=== PATIENT | female | born 1945 | race Caucasian/White ===

== ENCOUNTER 2021-02-09 17:55 | Inpatient (IN) ==
[2021-02-09] MEDS ORDERED: *HR* HYDROcodone/Acet 5/325 mg TABLET PO PRN (21:01)
[2021-02-09] MEDS ORDERED: Saline Nasal Spray 44 ML BOTTLE NS PRN (21:01)
[2021-02-09] MEDS ORDERED: *HR* Dextrose 50 % in Water (Vial) 50 ML VIAL IVP PRN (21:15)
[2021-02-09] MEDS ORDERED: Dextrose Gel 15 GM/37.5 ML TUBE PO PRN ×2 (21:15)
[2021-02-09] MEDS ORDERED: D5% in Water 1,000 ML IVC PRN (21:15)
[2021-02-09] MEDS: Melatonin 3 MG TABLET PO PRN (22:47)
[2021-02-10] MEDS ORDERED: Ondansetron ODT 4 MG TAB.RAPDIS SL PRN ×2 (01:35→17:14)
[2021-02-10] MEDS ORDERED: Morphine Sulfate ER (12 HR) 30 MG TABLET.ER PO SCH (09:00)
[2021-02-10] MEDS ORDERED: Sennosides/Docusate Sodium TABLET PO SCH (09:00)
[2021-02-10] MEDS ORDERED: METFORMIN HCL 500 MG PO SCH (09:00)
[2021-02-10] MEDS: Losartan/HCTZ 50-12.5 TABLET PO SCH (09:57)
[2021-02-10] MEDS: Cholecalciferol (D-3) 1,000 UNIT (25MCG) TABLET PO SCH (09:57)
[2021-02-10] MEDS: Multivit/Ca/Min/Fe/FA 1 TAB TABLET PO SCH (09:57)
[2021-02-10] MEDS: Gabapentin 400 MG CAPSULE PO SCH ×3 (09:57→20:38)
[2021-02-10] MEDS: Insulin LISPRO 300 UNITS/3 ML VIAL SUBQ SCH ×3 (09:58→17:16)
[2021-02-10] MEDS: Apixaban 5 MG TABLET PO SCH ×2 (09:58→20:38)
[2021-02-10] MEDS: Magnesium Oxide 400 MG TABLET PO SCH ×2 (09:58→20:38)
[2021-02-10] MEDS: Propranolol LA (24 HR) 80 MG CAP.SA.24H PO SCH (09:59)
[2021-02-10] MEDS: polyethylene glycoL 3350 17 GM POWD.PACK PO SCH (10:00)
[2021-02-10] MEDS: FEBUXOSTAT 40 MG PO SCH (10:00)
[2021-02-10] MEDS: Artificial Tears SOLN 15 ML BOTTLE BOTH EYES SCH ×2 (10:04→20:39)
[2021-02-10] MEDS ORDERED: Perflutren Lipid Microsphere 1.3 ML in 0.9 % Sodium Chloride 8.7 ML IVP PRN (10:30)
[2021-02-10] MEDS: Furosemide 40 MG TABLET PO SCH ×2 (11:12→17:16)
[2021-02-10] MEDS: dexAMETHasone 4 MG TABLET PO SCH (11:12)
[2021-02-10] MEDS ORDERED: Ondansetron 4 MG/2 ML VIAL IVP PRN (17:08)
[2021-02-10] MEDS ORDERED: Insulin LISPRO 300 UNITS/3 ML VIAL SUBQ SCH (21:00)
[2021-02-10] MEDS ORDERED: Insulin DETEMIR 100 UNIT/ML per UNIT SUBQ SCH (21:00)
[2021-02-10] MEDS: traZODone 50 MG TABLET PO SCH (21:43)
[2021-02-10] MEDS: Melatonin 3 MG TABLET PO PRN (21:43)
[2021-02-11 07:22] LABS: Magnesium 1.5 mg/dL (1.6-2.6); Phosphorous 4.2 mg/dL (2.7-4.5)
[2021-02-11] MEDS: Insulin LISPRO 300 UNITS/3 ML VIAL SUBQ SCH ×5 (10:30→20:28)
[2021-02-11] MEDS: dexAMETHasone 4 MG TABLET PO SCH (10:31)
[2021-02-11] MEDS: Artificial Tears SOLN 15 ML BOTTLE BOTH EYES SCH ×2 (10:31→20:27)
[2021-02-11] MEDS: Furosemide 40 MG TABLET PO SCH ×2 (10:31→15:57)
[2021-02-11] MEDS: Apixaban 5 MG TABLET PO SCH ×2 (10:32→20:28)
[2021-02-11] MEDS: Propranolol LA (24 HR) 80 MG CAP.SA.24H PO SCH (10:32)
[2021-02-11] MEDS: Losartan/HCTZ 50-12.5 TABLET PO SCH (10:32)
[2021-02-11] MEDS: Magnesium Oxide 400 MG TABLET PO SCH ×2 (10:33→20:28)
[2021-02-11] MEDS: polyethylene glycoL 3350 17 GM POWD.PACK PO SCH (10:33)
[2021-02-11] MEDS: Gabapentin 400 MG CAPSULE PO SCH ×3 (10:33→20:28)
[2021-02-11] MEDS: FEBUXOSTAT 40 MG PO SCH (10:34)
[2021-02-11] MEDS: Sennosides/Docusate Sodium TABLET PO SCH (10:34)
[2021-02-11] MEDS: Cholecalciferol (D-3) 1,000 UNIT (25MCG) TABLET PO SCH (10:35)
[2021-02-11] MEDS: Multivit/Ca/Min/Fe/FA 1 TAB TABLET PO SCH (10:35)
[2021-02-11] MEDS: Insulin DETEMIR 100 UNIT/ML per UNIT SUBQ SCH (20:28)
[2021-02-11] MEDS ORDERED: Ergocalciferol (VIT D2) 50,000 UNIT (1.25MG) CAP PO SCH (21:01)
[2021-02-11] MEDS: Melatonin 3 MG TABLET PO PRN (21:41)
[2021-02-11] MEDS: traZODone 50 MG TABLET PO SCH (21:41)
[2021-02-12 05:46] LABS: Albumin 2.9 g/dL (3.5-5.7); Albumin/Globulin Ratio 1.2 (1.1-2.2); Bilirubin,Total 0.4 mg/dL (0.3-1.0); Calcium 9.1 mg/dL (8.6-10.3); Globulin 2.5 g/dL (2.4-3.5); Potassium 3.2 mEq/L (3.5-5.1); Total Protein 5.4 g/dL (6.4-8.9)
[2021-02-12] MEDS: Insulin LISPRO 300 UNITS/3 ML VIAL SUBQ SCH ×5 (07:42→21:36)
[2021-02-12] MEDS: dexAMETHasone 4 MG TABLET PO SCH (08:28)
[2021-02-12] MEDS: Cholecalciferol (D-3) 1,000 UNIT (25MCG) TABLET PO SCH (08:29)
[2021-02-12] MEDS: FEBUXOSTAT 40 MG PO SCH (08:29)
[2021-02-12] MEDS: polyethylene glycoL 3350 17 GM POWD.PACK PO SCH ×2 (08:29→11:55)
[2021-02-12] MEDS: Sennosides/Docusate Sodium TABLET PO SCH (08:29)
[2021-02-12] MEDS: Gabapentin 400 MG CAPSULE PO SCH ×3 (08:29→21:34)
[2021-02-12] MEDS: Multivit/Ca/Min/Fe/FA 1 TAB TABLET PO SCH (08:30)
[2021-02-12] MEDS: Apixaban 5 MG TABLET PO SCH ×2 (08:30→21:35)
[2021-02-12] MEDS: Magnesium Oxide 400 MG TABLET PO SCH ×2 (08:30→21:35)
[2021-02-12] MEDS: Losartan/HCTZ 50-12.5 TABLET PO SCH (08:41)
[2021-02-12] MEDS: Furosemide 40 MG TABLET PO SCH ×2 (08:41→16:51)
[2021-02-12] MEDS: Propranolol LA (24 HR) 80 MG CAP.SA.24H PO SCH (08:42)
[2021-02-12] MEDS: Artificial Tears SOLN 15 ML BOTTLE BOTH EYES SCH ×2 (08:43→21:37)
[2021-02-12] MEDS: Insulin DETEMIR 100 UNIT/ML per UNIT SUBQ SCH (21:35)
[2021-02-12] MEDS: traZODone 50 MG TABLET PO SCH (21:35)
[2021-02-13 07:05] LABS: Alanine Aminotransferase 15 Units/L (7-52); Albumin 2.9 g/dL (3.5-5.7); Albumin/Globulin Ratio 1.1 (1.1-2.2); Alkaline Phosphatase 58 Units/L (34-104); Aspartate Amino Transferase 12 Units/L (13-39); BUN/Creatinine Ratio 55 (6-26); Bilirubin,Total 0.4 mg/dL (0.3-1.0); Blood Urea Nitrogen 57 mg/dL (8-23); Calcium 9.2 mg/dL (8.6-10.3); Carbon Dioxide 37 mEq/L (23-29); Chloride 96 mEq/L (98-107); Globulin 2.6 g/dL (2.4-3.5); Glucose 89 mg/dL (70-105); Osmolality,Calculated 303 (280-300); Potassium 3.8 mEq/L (3.5-5.1); Sodium 139 mEq/L (136-145); Total Protein 5.5 g/dL (6.4-8.9); eGFR For African Americans > 60 (> 60); eGFR For Non-African Americans 52 (> 60)
[2021-02-13] MEDS ORDERED: Propranolol LA (24 HR) 60 MG CAP.SA.24H PO SCH (09:00)
[2021-02-13] MEDS: Insulin LISPRO 300 UNITS/3 ML VIAL SUBQ SCH ×5 (09:58→17:10)
[2021-02-13] MEDS: Multivit/Ca/Min/Fe/FA 1 TAB TABLET PO SCH (09:59)
[2021-02-13] MEDS: Sennosides/Docusate Sodium TABLET PO SCH (09:59)
[2021-02-13] MEDS: Gabapentin 400 MG CAPSULE PO SCH ×3 (10:00→21:12)
[2021-02-13] MEDS: Cholecalciferol (D-3) 1,000 UNIT (25MCG) TABLET PO SCH (10:00)
[2021-02-13] MEDS: Magnesium Oxide 400 MG TABLET PO SCH ×2 (10:00→21:12)
[2021-02-13] MEDS: Propranolol LA (24 HR) 60 MG CAP.SA.24H PO SCH (10:00)
[2021-02-13] MEDS: Furosemide 40 MG TABLET PO SCH ×2 (10:00→17:08)
[2021-02-13] MEDS: polyethylene glycoL 3350 17 GM POWD.PACK PO SCH (10:00)
[2021-02-13] MEDS: dexAMETHasone 4 MG TABLET PO SCH (10:01)
[2021-02-13] MEDS: Artificial Tears SOLN 15 ML BOTTLE BOTH EYES SCH ×2 (10:01→21:12)
[2021-02-13] MEDS: FEBUXOSTAT 40 MG PO SCH (10:10)
[2021-02-13] MEDS: Apixaban 5 MG TABLET PO SCH ×2 (10:10→21:12)
[2021-02-13] MEDS: traZODone 50 MG TABLET PO SCH (21:12)
[2021-02-13] MEDS: Insulin DETEMIR 100 UNIT/ML X5UNITS SUBQ SCH (21:13)
[2021-02-14 07:43] LABS: Basophils % 0.1 %; Eosinophils % 0.3 %; Hematocrit 30.7 % (35.3-44.9); Immature Granulocytes % 0.4 % (0-4); Lymphocytes # 1.3 K/mcL (0.6-4.6); Mean Corpuscular HGB Conc 32.6 g/dL (31.6-35.5); Mean Corpuscular Hemoglobin 30.1 pg (28.0-33.3); Mean Corpuscular Volume 92.5 fL (83.0-100.0); Mean Platelet Volume 9.2 fL (9.4-12.4); Monocytes # 0.6 K/mcL (0.0-1.3); Monocytes % 8.2 %; Neutrophils # 5.9 K/mcL (1.6-8.9); Platelet Count 328 K/mcL (140-400); Red Blood Count 3.32 M/mcL (3.82-4.97); Red Cell Distribution Width 18.1 % (11.5-14.5); White Blood Count 7.8 K/mcL (4.3-11.1)
[2021-02-14 08:04] LABS: Alanine Aminotransferase 17 Units/L (7-52); Albumin 2.7 g/dL (3.5-5.7); Albumin/Globulin Ratio 1.1 (1.1-2.2); Alkaline Phosphatase 53 Units/L (34-104); Aspartate Amino Transferase 14 Units/L (13-39); BUN/Creatinine Ratio 58 (6-26); Bilirubin,Total 0.4 mg/dL (0.3-1.0); Blood Urea Nitrogen 49 mg/dL (8-23); Calcium 8.9 mg/dL (8.6-10.3); Carbon Dioxide 34 mEq/L (23-29); Chloride 99 mEq/L (98-107); Globulin 2.5 g/dL (2.4-3.5); Glucose 65 mg/dL (70-105); Osmolality,Calculated 299 (280-300); Potassium 3.5 mEq/L (3.5-5.1); Sodium 139 mEq/L (136-145); Total Protein 5.2 g/dL (6.4-8.9); eGFR For African Americans > 60 (> 60); eGFR For Non-African Americans > 60 (> 60)
[2021-02-14 08:15] LABS: Thyroid Stimulating Hormone 0.524 mcIU/mL (0.340-5.600)
[2021-02-14] MEDS: Insulin LISPRO 300 UNITS/3 ML VIAL SUBQ SCH ×5 (09:45→16:56)
[2021-02-14] MEDS: Artificial Tears SOLN 15 ML BOTTLE BOTH EYES SCH ×2 (09:46→20:02)
[2021-02-14] MEDS: Propranolol LA (24 HR) 60 MG CAP.SA.24H PO SCH (09:46)
[2021-02-14] MEDS: Furosemide 40 MG TABLET PO SCH ×2 (09:46→17:02)
[2021-02-14] MEDS: Apixaban 5 MG TABLET PO SCH ×2 (09:46→20:02)
[2021-02-14] MEDS: Multivit/Ca/Min/Fe/FA 1 TAB TABLET PO SCH (09:47)
[2021-02-14] MEDS: FEBUXOSTAT 40 MG PO SCH (09:47)
[2021-02-14] MEDS: dexAMETHasone 4 MG TABLET PO SCH (09:47)
[2021-02-14] MEDS: Gabapentin 400 MG CAPSULE PO SCH (09:47)
[2021-02-14] MEDS: Cholecalciferol (D-3) 1,000 UNIT (25MCG) TABLET PO SCH (09:47)
[2021-02-14] MEDS: Sennosides/Docusate Sodium TABLET PO SCH (09:48)
[2021-02-14] MEDS: Magnesium Oxide 400 MG TABLET PO SCH ×2 (09:48→20:01)
[2021-02-14] MEDS: polyethylene glycoL 3350 17 GM POWD.PACK PO SCH (09:48)
[2021-02-14] MEDS: Gabapentin 300 MG CAPSULE PO SCH ×2 (13:05→20:01)
[2021-02-14] MEDS: *HR* HYDROcodone/Acet 5/325 mg TABLET PO PRN ×2 (13:05→20:02)
[2021-02-14] MEDS ORDERED: Gabapentin 300 MG CAPSULE PO SCH (15:00)
[2021-02-14] MEDS: traZODone 50 MG TABLET PO SCH (20:00)
[2021-02-14] MEDS: Melatonin 3 MG TABLET PO PRN (20:01)
[2021-02-14] MEDS: Insulin DETEMIR 100 UNIT/ML X5UNITS SUBQ SCH (20:03)
[2021-02-15 07:58] LABS: Alanine Aminotransferase 18 Units/L (7-52); Albumin 2.7 g/dL (3.5-5.7); Albumin/Globulin Ratio 1.1 (1.1-2.2); Alkaline Phosphatase 51 Units/L (34-104); Aspartate Amino Transferase 14 Units/L (13-39); BUN/Creatinine Ratio 48 (6-26); Bilirubin,Total 0.3 mg/dL (0.3-1.0); Blood Urea Nitrogen 47 mg/dL (8-23); Calcium 8.8 mg/dL (8.6-10.3); Carbon Dioxide 33 mEq/L (23-29); Chloride 100 mEq/L (98-107); Globulin 2.4 g/dL (2.4-3.5); Glucose 118 mg/dL (70-105); Osmolality,Calculated 301 (280-300); Potassium 3.6 mEq/L (3.5-5.1); Sodium 139 mEq/L (136-145); Total Protein 5.1 g/dL (6.4-8.9); eGFR For African Americans > 60 (> 60); eGFR For Non-African Americans 56 (> 60)
[2021-02-15] MEDS: Insulin LISPRO 300 UNITS/3 ML VIAL SUBQ SCH ×5 (09:13→16:46)
[2021-02-15] MEDS: Propranolol LA (24 HR) 60 MG CAP.SA.24H PO SCH (09:14)
[2021-02-15] MEDS: Cholecalciferol (D-3) 1,000 UNIT (25MCG) TABLET PO SCH (09:14)
[2021-02-15] MEDS: Apixaban 5 MG TABLET PO SCH ×2 (09:15→21:16)
[2021-02-15] MEDS: dexAMETHasone 4 MG TABLET PO SCH ×2 (09:15→11:28)
[2021-02-15] MEDS: Sennosides/Docusate Sodium TABLET PO SCH (09:15)
[2021-02-15] MEDS: Gabapentin 300 MG CAPSULE PO SCH ×3 (09:15→21:15)
[2021-02-15] MEDS: Magnesium Oxide 400 MG TABLET PO SCH ×2 (09:15→21:16)
[2021-02-15] MEDS: Artificial Tears SOLN 15 ML BOTTLE BOTH EYES SCH ×2 (09:16→21:17)
[2021-02-15] MEDS: Multivit/Ca/Min/Fe/FA 1 TAB TABLET PO SCH (09:16)
[2021-02-15] MEDS: Furosemide 40 MG TABLET PO SCH ×2 (09:16→16:47)
[2021-02-15] MEDS: polyethylene glycoL 3350 17 GM POWD.PACK PO SCH (09:17)
[2021-02-15] MEDS: FEBUXOSTAT 40 MG PO SCH (09:17)
[2021-02-15] MEDS: Melatonin 3 MG TABLET PO PRN (21:14)
[2021-02-15] MEDS: traZODone 50 MG TABLET PO SCH (21:15)
[2021-02-15] MEDS: *HR* HYDROcodone/Acet 5/325 mg TABLET PO PRN (21:16)
[2021-02-15] MEDS: Insulin DETEMIR 100 UNIT/ML X5UNITS SUBQ SCH (21:17)
[2021-02-16 08:03] LABS: Alanine Aminotransferase 20 Units/L (7-52); Albumin 2.8 g/dL (3.5-5.7); Albumin/Globulin Ratio 1.2 (1.1-2.2); Alkaline Phosphatase 52 Units/L (34-104); Aspartate Amino Transferase 14 Units/L (13-39); BUN/Creatinine Ratio 52 (6-26); Bilirubin,Total 0.3 mg/dL (0.3-1.0); Blood Urea Nitrogen 51 mg/dL (8-23); Carbon Dioxide 34 mEq/L (23-29); Chloride 100 mEq/L (98-107); Globulin 2.4 g/dL (2.4-3.5); Glucose 65 mg/dL (70-105); Osmolality,Calculated 304 (280-300); Potassium 3.4 mEq/L (3.5-5.1); Sodium 141 mEq/L (136-145); Total Protein 5.2 g/dL (6.4-8.9); eGFR For African Americans > 60 (> 60); eGFR For Non-African Americans 56 (> 60)
[2021-02-16] MEDS: polyethylene glycoL 3350 17 GM POWD.PACK PO SCH (09:36)
[2021-02-16] MEDS: Gabapentin 300 MG CAPSULE PO SCH ×3 (09:36→21:07)
[2021-02-16] MEDS: Cholecalciferol (D-3) 1,000 UNIT (25MCG) TABLET PO SCH (09:36)
[2021-02-16] MEDS: Sennosides/Docusate Sodium TABLET PO SCH (09:37)
[2021-02-16] MEDS: Multivit/Ca/Min/Fe/FA 1 TAB TABLET PO SCH (09:37)
[2021-02-16] MEDS: Propranolol LA (24 HR) 60 MG CAP.SA.24H PO SCH (09:37)
[2021-02-16] MEDS: Apixaban 5 MG TABLET PO SCH ×2 (09:37→21:10)
[2021-02-16] MEDS: Furosemide 40 MG TABLET PO SCH ×2 (09:37→15:55)
[2021-02-16] MEDS: Magnesium Oxide 400 MG TABLET PO SCH ×2 (09:37→21:06)
[2021-02-16] MEDS: Insulin LISPRO 300 UNITS/3 ML VIAL SUBQ SCH ×5 (09:38→15:55)
[2021-02-16] MEDS: Artificial Tears SOLN 15 ML BOTTLE BOTH EYES SCH ×2 (09:38→21:08)
[2021-02-16] MEDS: FEBUXOSTAT 40 MG PO SCH (09:38)
[2021-02-16] MEDS ORDERED: Insulin DETEMIR 100 UNIT/ML X5UNITS SUBQ SCH (21:00)
[2021-02-16] MEDS: traZODone 50 MG TABLET PO SCH (21:07)
[2021-02-16] MEDS: Melatonin 3 MG TABLET PO PRN (21:10)
[2021-02-17] MEDS: polyethylene glycoL 3350 17 GM POWD.PACK PO SCH (09:01)
[2021-02-17] MEDS: Gabapentin 300 MG CAPSULE PO SCH ×3 (09:01→20:03)
[2021-02-17] MEDS: Artificial Tears SOLN 15 ML BOTTLE BOTH EYES SCH ×2 (09:01→20:04)
[2021-02-17] MEDS: Cholecalciferol (D-3) 1,000 UNIT (25MCG) TABLET PO SCH (09:01)
[2021-02-17] MEDS: Sennosides/Docusate Sodium TABLET PO SCH (09:02)
[2021-02-17] MEDS: Furosemide 40 MG TABLET PO SCH ×2 (09:02→16:58)
[2021-02-17] MEDS: Propranolol LA (24 HR) 60 MG CAP.SA.24H PO SCH (09:02)
[2021-02-17] MEDS: Magnesium Oxide 400 MG TABLET PO SCH ×2 (09:02→20:11)
[2021-02-17] MEDS: Multivit/Ca/Min/Fe/FA 1 TAB TABLET PO SCH (09:02)
[2021-02-17] MEDS: Apixaban 5 MG TABLET PO SCH ×2 (09:02→20:04)
[2021-02-17] MEDS: dexAMETHasone 4 MG TABLET PO SCH (09:02)
[2021-02-17] MEDS: Insulin LISPRO 300 UNITS/3 ML VIAL SUBQ SCH ×5 (09:03→16:59)
[2021-02-17] MEDS: FEBUXOSTAT 40 MG PO SCH (09:03)
[2021-02-17] MEDS: *HR* HYDROcodone/Acet 5/325 mg TABLET PO PRN (15:41)
[2021-02-17] MEDS ORDERED: Insulin LISPRO 300 UNITS/3 ML VIAL SUBQ ONE (16:40)
[2021-02-17] MEDS ORDERED: Insulin LISPRO 300 UNITS/3 ML VIAL SUBQ SCH (17:00)
[2021-02-17] MEDS: Melatonin 3 MG TABLET PO PRN (20:02)
[2021-02-17] MEDS: traZODone 50 MG TABLET PO SCH (20:03)
[2021-02-17] MEDS: Insulin DETEMIR 100 UNIT/ML X5UNITS SUBQ SCH (20:04)
[2021-02-18] MEDS ORDERED: Insulin LISPRO 300 UNITS/3 ML VIAL SUBQ SCH (08:00)
[2021-02-18] MEDS: Insulin LISPRO 300 UNITS/3 ML VIAL SUBQ SCH ×5 (08:10→16:43)
[2021-02-18] MEDS: polyethylene glycoL 3350 17 GM POWD.PACK PO SCH (08:14)
[2021-02-18] MEDS: Artificial Tears SOLN 15 ML BOTTLE BOTH EYES SCH ×2 (08:14→22:27)
[2021-02-18] MEDS: Multivit/Ca/Min/Fe/FA 1 TAB TABLET PO SCH (08:15)
[2021-02-18] MEDS: Sennosides/Docusate Sodium TABLET PO SCH (08:15)
[2021-02-18] MEDS: Magnesium Oxide 400 MG TABLET PO SCH ×2 (08:15→22:26)
[2021-02-18] MEDS: Cholecalciferol (D-3) 1,000 UNIT (25MCG) TABLET PO SCH (08:15)
[2021-02-18] MEDS: Propranolol LA (24 HR) 60 MG CAP.SA.24H PO SCH (08:16)
[2021-02-18] MEDS: Apixaban 5 MG TABLET PO SCH ×2 (08:16→22:27)
[2021-02-18] MEDS: Furosemide 40 MG TABLET PO SCH ×2 (08:16→16:43)
[2021-02-18] MEDS: Gabapentin 300 MG CAPSULE PO SCH ×3 (08:16→22:25)
[2021-02-18] MEDS: FEBUXOSTAT 40 MG PO SCH (08:17)
[2021-02-18 09:53] LABS: Basophils % 0.1 %; Eosinophils % 0.1 %; Hematocrit 32.4 % (35.3-44.9); Hemoglobin 10.2 g/dL (11.5-15.4); Immature Granulocytes % 0.7 % (0-4); Lymphocytes # 0.9 K/mcL (0.6-4.6); Lymphocytes % 10.7 %; Mean Corpuscular HGB Conc 31.5 g/dL (31.6-35.5); Mean Corpuscular Volume 95.3 fL (83.0-100.0); Monocytes # 0.4 K/mcL (0.0-1.3); Monocytes % 4.8 %; Neutrophils # 6.9 K/mcL (1.6-8.9); Platelet Count 312 K/mcL (140-400); Red Cell Distribution Width 17.9 % (11.5-14.5); Segmented Neutrophils % 83.6 %; White Blood Count 8.3 K/mcL (4.3-11.1)
[2021-02-18 10:13] LABS: Alanine Aminotransferase 21 Units/L (7-52); Albumin/Globulin Ratio 1.3 (1.1-2.2); Alkaline Phosphatase 78 Units/L (34-104); Aspartate Amino Transferase 11 Units/L (13-39); BUN/Creatinine Ratio 42 (6-26); Bilirubin,Total 0.3 mg/dL (0.3-1.0); Blood Urea Nitrogen 45 mg/dL (8-23); Carbon Dioxide 33 mEq/L (23-29); Chloride 96 mEq/L (98-107); Globulin 2.4 g/dL (2.4-3.5); Glucose 337 mg/dL (70-105); Osmolality,Calculated 311 (280-300); Potassium 3.3 mEq/L (3.5-5.1); Sodium 138 mEq/L (136-145); Total Protein 5.4 g/dL (6.4-8.9); eGFR For African Americans > 60 (> 60); eGFR For Non-African Americans 50 (> 60)
[2021-02-18] MEDS: *HR* HYDROcodone/Acet 5/325 mg TABLET PO PRN (22:26)
[2021-02-18] MEDS: traZODone 50 MG TABLET PO SCH (22:26)
[2021-02-18] MEDS: Melatonin 3 MG TABLET PO PRN (22:27)
[2021-02-18] MEDS: Insulin DETEMIR 100 UNIT/ML X5UNITS SUBQ SCH (22:34)
[2021-02-19] MEDS: Insulin LISPRO 300 UNITS/3 ML VIAL SUBQ SCH ×6 (09:13→17:02)
[2021-02-19] MEDS: polyethylene glycoL 3350 17 GM POWD.PACK PO SCH (09:14)
[2021-02-19] MEDS: Cholecalciferol (D-3) 1,000 UNIT (25MCG) TABLET PO SCH (09:14)
[2021-02-19] MEDS: Multivit/Ca/Min/Fe/FA 1 TAB TABLET PO SCH (09:15)
[2021-02-19] MEDS: Gabapentin 300 MG CAPSULE PO SCH ×3 (09:15→21:53)
[2021-02-19] MEDS: Magnesium Oxide 400 MG TABLET PO SCH ×2 (09:15→21:55)
[2021-02-19] MEDS: Sennosides/Docusate Sodium TABLET PO SCH (09:15)
[2021-02-19] MEDS: Furosemide 40 MG TABLET PO SCH ×2 (09:16→17:02)
[2021-02-19] MEDS: Propranolol LA (24 HR) 60 MG CAP.SA.24H PO SCH (09:16)
[2021-02-19] MEDS: dexAMETHasone 4 MG TABLET PO SCH (09:16)
[2021-02-19] MEDS: FEBUXOSTAT 40 MG PO SCH (09:17)
[2021-02-19] MEDS: Apixaban 5 MG TABLET PO SCH ×2 (09:17→21:55)
[2021-02-19] MEDS: Artificial Tears SOLN 15 ML BOTTLE BOTH EYES SCH ×2 (09:23→21:59)
[2021-02-19] MEDS: *HR* HYDROcodone/Acet 5/325 mg TABLET PO PRN (17:19)
[2021-02-19] MEDS: traZODone 50 MG TABLET PO SCH (21:54)
[2021-02-19] MEDS: Melatonin 3 MG TABLET PO PRN (21:54)
[2021-02-19] MEDS: Insulin DETEMIR 100 UNIT/ML X5UNITS SUBQ SCH (21:55)
[2021-02-20] MEDS: *HR* HYDROcodone/Acet 5/325 mg TABLET PO PRN ×3 (00:49→21:24)
[2021-02-20] MEDS: Insulin LISPRO 300 UNITS/3 ML VIAL SUBQ SCH ×6 (08:21→17:03)
[2021-02-20] MEDS: Artificial Tears SOLN 15 ML BOTTLE BOTH EYES SCH ×2 (08:21→21:27)
[2021-02-20] MEDS: polyethylene glycoL 3350 17 GM POWD.PACK PO SCH (08:22)
[2021-02-20] MEDS: Multivit/Ca/Min/Fe/FA 1 TAB TABLET PO SCH (08:23)
[2021-02-20] MEDS: Cholecalciferol (D-3) 1,000 UNIT (25MCG) TABLET PO SCH (08:23)
[2021-02-20] MEDS: Sennosides/Docusate Sodium TABLET PO SCH (08:23)
[2021-02-20] MEDS: Apixaban 5 MG TABLET PO SCH ×2 (08:23→21:27)
[2021-02-20] MEDS: Magnesium Oxide 400 MG TABLET PO SCH ×2 (08:24→21:27)
[2021-02-20] MEDS: Furosemide 40 MG TABLET PO SCH ×2 (08:24→15:49)
[2021-02-20] MEDS: Gabapentin 300 MG CAPSULE PO SCH ×3 (08:24→21:27)
[2021-02-20] MEDS: Propranolol LA (24 HR) 60 MG CAP.SA.24H PO SCH (08:24)
[2021-02-20] MEDS: FEBUXOSTAT 40 MG PO SCH (08:26)
[2021-02-20] MEDS: Insulin DETEMIR 100 UNIT/ML X5UNITS SUBQ SCH (21:27)
[2021-02-20] MEDS: traZODone 50 MG TABLET PO SCH (21:28)
[2021-02-21] MEDS: Insulin LISPRO 300 UNITS/3 ML VIAL SUBQ SCH ×6 (07:47→18:31)
[2021-02-21] MEDS: Furosemide 40 MG TABLET PO SCH ×2 (09:30→18:30)
[2021-02-21] MEDS: Propranolol LA (24 HR) 60 MG CAP.SA.24H PO SCH (09:30)
[2021-02-21] MEDS: Gabapentin 300 MG CAPSULE PO SCH ×3 (09:30→20:17)
[2021-02-21] MEDS: Cholecalciferol (D-3) 1,000 UNIT (25MCG) TABLET PO SCH (09:30)
[2021-02-21] MEDS: Magnesium Oxide 400 MG TABLET PO SCH ×2 (09:30→20:16)
[2021-02-21] MEDS: FEBUXOSTAT 40 MG PO SCH (09:31)
[2021-02-21] MEDS: Apixaban 5 MG TABLET PO SCH ×2 (09:31→20:16)
[2021-02-21] MEDS: polyethylene glycoL 3350 17 GM POWD.PACK PO SCH (09:31)
[2021-02-21] MEDS: Sennosides/Docusate Sodium TABLET PO SCH (09:31)
[2021-02-21] MEDS: Multivit/Ca/Min/Fe/FA 1 TAB TABLET PO SCH (09:31)
[2021-02-21] MEDS: Artificial Tears SOLN 15 ML BOTTLE BOTH EYES SCH ×2 (09:38→20:17)
[2021-02-21] MEDS: *HR* HYDROcodone/Acet 5/325 mg TABLET PO PRN (15:18)
[2021-02-21] MEDS: Fluticasone Propionate Nasal 50 MCG/SPRAY BOTTLE NS SCH (18:30)
[2021-02-21] MEDS: Insulin DETEMIR 100 UNIT/ML X5UNITS SUBQ SCH (20:15)
[2021-02-21] MEDS: traZODone 50 MG TABLET PO SCH (20:16)
[2021-02-21] MEDS: Melatonin 3 MG TABLET PO PRN (20:16)
[2021-02-21] MEDS: Amoxicillin 500 MG CAPSULE PO SCH (20:16)
[2021-02-22] MEDS: Gabapentin 300 MG CAPSULE PO SCH ×3 (08:42→20:10)
[2021-02-22] MEDS: Propranolol LA (24 HR) 60 MG CAP.SA.24H PO SCH (08:42)
[2021-02-22] MEDS: Cholecalciferol (D-3) 1,000 UNIT (25MCG) TABLET PO SCH (08:42)
[2021-02-22] MEDS: Multivit/Ca/Min/Fe/FA 1 TAB TABLET PO SCH (08:42)
[2021-02-22] MEDS: Furosemide 40 MG TABLET PO SCH ×2 (08:43→16:57)
[2021-02-22] MEDS: Magnesium Oxide 400 MG TABLET PO SCH ×2 (08:43→20:11)
[2021-02-22] MEDS: Apixaban 5 MG TABLET PO SCH ×2 (08:43→20:12)
[2021-02-22] MEDS: Artificial Tears SOLN 15 ML BOTTLE BOTH EYES SCH ×2 (08:43→20:23)
[2021-02-22] MEDS: Amoxicillin 500 MG CAPSULE PO SCH ×3 (08:43→20:10)
[2021-02-22] MEDS: Sennosides/Docusate Sodium TABLET PO SCH (08:44)
[2021-02-22] MEDS: FEBUXOSTAT 40 MG PO SCH (08:44)
[2021-02-22] MEDS: polyethylene glycoL 3350 17 GM POWD.PACK PO SCH (08:44)
[2021-02-22] MEDS: Fluticasone Propionate Nasal 50 MCG/SPRAY BOTTLE NS SCH (08:44)
[2021-02-22] MEDS: Insulin LISPRO 300 UNITS/3 ML VIAL SUBQ SCH ×6 (08:45→16:58)
[2021-02-22] MEDS: *HR* HYDROcodone/Acet 5/325 mg TABLET PO PRN ×2 (08:51→16:59)
[2021-02-22] MEDS: traZODone 50 MG TABLET PO SCH (20:11)
[2021-02-22] MEDS: Insulin DETEMIR 100 UNIT/ML X5UNITS SUBQ SCH (20:12)
[2021-02-22] MEDS: Melatonin 3 MG TABLET PO PRN (20:13)
[2021-02-23] MEDS: Amoxicillin 500 MG CAPSULE PO SCH ×3 (08:15→20:24)
[2021-02-23] MEDS: Propranolol LA (24 HR) 60 MG CAP.SA.24H PO SCH (08:15)
[2021-02-23] MEDS: Artificial Tears SOLN 15 ML BOTTLE BOTH EYES SCH ×2 (08:15→20:25)
[2021-02-23] MEDS: Gabapentin 300 MG CAPSULE PO SCH ×3 (08:15→20:24)
[2021-02-23] MEDS: Fluticasone Propionate Nasal 50 MCG/SPRAY BOTTLE NS SCH (08:15)
[2021-02-23] MEDS: Magnesium Oxide 400 MG TABLET PO SCH ×2 (08:15→20:24)
[2021-02-23] MEDS: Cholecalciferol (D-3) 1,000 UNIT (25MCG) TABLET PO SCH (08:15)
[2021-02-23] MEDS: Apixaban 5 MG TABLET PO SCH ×2 (08:16→20:24)
[2021-02-23] MEDS: polyethylene glycoL 3350 17 GM POWD.PACK PO SCH (08:16)
[2021-02-23] MEDS: Multivit/Ca/Min/Fe/FA 1 TAB TABLET PO SCH (08:16)
[2021-02-23] MEDS: Furosemide 40 MG TABLET PO SCH ×2 (08:16→16:49)
[2021-02-23] MEDS: Sennosides/Docusate Sodium TABLET PO SCH (08:17)
[2021-02-23] MEDS: FEBUXOSTAT 40 MG PO SCH (08:17)
[2021-02-23] MEDS: Insulin LISPRO 300 UNITS/3 ML VIAL SUBQ SCH ×6 (08:17→16:48)
[2021-02-23] MEDS: *HR* HYDROcodone/Acet 5/325 mg TABLET PO PRN (13:27)
[2021-02-23] MEDS: Nystatin POWDER 30 GM BOTTLE TP SCH ×2 (14:12→20:25)
[2021-02-23] MEDS: Insulin DETEMIR 100 UNIT/ML X5UNITS SUBQ SCH (20:23)
[2021-02-23] MEDS: traZODone 50 MG TABLET PO SCH (20:24)
[2021-02-23] MEDS: Melatonin 3 MG TABLET PO PRN (20:27)
[2021-02-24 07:03] LABS: Basophils % 0.2 %; Eosinophils # 0.2 K/mcL (0.0-0.6); Eosinophils % 2.7 %; Hematocrit 29.5 % (35.3-44.9); Hemoglobin 9.4 g/dL (11.5-15.4); Immature Granulocytes % 0.5 % (0-4); Lymphocytes # 1.3 K/mcL (0.6-4.6); Lymphocytes % 22.7 %; Mean Corpuscular HGB Conc 31.9 g/dL (31.6-35.5); Mean Corpuscular Hemoglobin 30.3 pg (28.0-33.3); Mean Corpuscular Volume 95.2 fL (83.0-100.0); Mean Platelet Volume 9.4 fL (9.4-12.4); Monocytes # 0.7 K/mcL (0.0-1.3); Neutrophils # 3.7 K/mcL (1.6-8.9); Platelet Count 228 K/mcL (140-400); Red Cell Distribution Width 18.3 % (11.5-14.5); Segmented Neutrophils % 62.9 %; White Blood Count 5.9 K/mcL (4.3-11.1)
[2021-02-24 07:22] LABS: BUN/Creatinine Ratio 32 (6-26); Blood Urea Nitrogen 29 mg/dL (8-23); Calcium 8.8 mg/dL (8.6-10.3); Carbon Dioxide 33 mEq/L (23-29); Chloride 99 mEq/L (98-107); Glucose 168 mg/dL (70-105); Osmolality,Calculated 298 (280-300); Potassium 3.6 mEq/L (3.5-5.1); Sodium 139 mEq/L (136-145); eGFR For African Americans > 60 (> 60); eGFR For Non-African Americans > 60 (> 60)
[2021-02-24] MEDS: Nystatin POWDER 30 GM BOTTLE TP SCH ×3 (09:45→21:24)
[2021-02-24] MEDS: Fluticasone Propionate Nasal 50 MCG/SPRAY BOTTLE NS SCH (09:45)
[2021-02-24] MEDS: Artificial Tears SOLN 15 ML BOTTLE BOTH EYES SCH ×2 (09:45→21:20)
[2021-02-24] MEDS: Gabapentin 300 MG CAPSULE PO SCH ×3 (09:46→21:19)
[2021-02-24] MEDS: Multivit/Ca/Min/Fe/FA 1 TAB TABLET PO SCH (09:46)
[2021-02-24] MEDS: Cholecalciferol (D-3) 1,000 UNIT (25MCG) TABLET PO SCH (09:46)
[2021-02-24] MEDS: Amoxicillin 500 MG CAPSULE PO SCH ×3 (09:47→21:19)
[2021-02-24] MEDS: Sennosides/Docusate Sodium TABLET PO SCH (09:47)
[2021-02-24] MEDS: Insulin LISPRO 300 UNITS/3 ML VIAL SUBQ SCH ×6 (09:48→16:34)
[2021-02-24] MEDS: Magnesium Oxide 400 MG TABLET PO SCH ×2 (09:48→21:19)
[2021-02-24] MEDS: Propranolol LA (24 HR) 60 MG CAP.SA.24H PO SCH (09:48)
[2021-02-24] MEDS: Apixaban 5 MG TABLET PO SCH ×2 (09:50→21:17)
[2021-02-24] MEDS: polyethylene glycoL 3350 17 GM POWD.PACK PO SCH (09:50)
[2021-02-24] MEDS: Furosemide 40 MG TABLET PO SCH ×2 (09:50→16:34)
[2021-02-24] MEDS: FEBUXOSTAT 40 MG PO SCH (10:02)
[2021-02-24] MEDS: *HR* HYDROcodone/Acet 5/325 mg TABLET PO PRN (16:45)
[2021-02-24] MEDS: Insulin DETEMIR 100 UNIT/ML X5UNITS SUBQ SCH (21:16)
[2021-02-24] MEDS: traZODone 50 MG TABLET PO SCH (21:18)
[2021-02-25] MEDS: *HR* HYDROcodone/Acet 5/325 mg TABLET PO PRN ×2 (04:55→20:16)
[2021-02-25] MEDS: Cholecalciferol (D-3) 1,000 UNIT (25MCG) TABLET PO SCH (09:00)
[2021-02-25] MEDS: Amoxicillin 500 MG CAPSULE PO SCH ×3 (09:01→20:14)
[2021-02-25] MEDS: Gabapentin 300 MG CAPSULE PO SCH ×3 (09:05→20:15)
[2021-02-25] MEDS: Propranolol LA (24 HR) 60 MG CAP.SA.24H PO SCH (09:05)
[2021-02-25] MEDS: Sennosides/Docusate Sodium TABLET PO SCH (09:06)
[2021-02-25] MEDS: Multivit/Ca/Min/Fe/FA 1 TAB TABLET PO SCH (09:06)
[2021-02-25] MEDS: Magnesium Oxide 400 MG TABLET PO SCH ×2 (09:06→20:16)
[2021-02-25] MEDS: Furosemide 40 MG TABLET PO SCH ×2 (09:06→17:03)
[2021-02-25] MEDS: Apixaban 5 MG TABLET PO SCH ×2 (09:06→20:16)
[2021-02-25] MEDS: FEBUXOSTAT 40 MG PO SCH (09:07)
[2021-02-25] MEDS: Fluticasone Propionate Nasal 50 MCG/SPRAY BOTTLE NS SCH (09:07)
[2021-02-25] MEDS: polyethylene glycoL 3350 17 GM POWD.PACK PO SCH (09:07)
[2021-02-25] MEDS: Insulin LISPRO 300 UNITS/3 ML VIAL SUBQ SCH ×6 (09:07→17:03)
[2021-02-25] MEDS: Artificial Tears SOLN 15 ML BOTTLE BOTH EYES SCH ×2 (09:12→20:20)
[2021-02-25] MEDS: Nystatin POWDER 30 GM BOTTLE TP SCH ×3 (09:13→20:21)
[2021-02-25] MEDS: traZODone 50 MG TABLET PO SCH (20:15)
[2021-02-25] MEDS: Melatonin 3 MG TABLET PO PRN (20:16)
[2021-02-25] MEDS: Insulin DETEMIR 100 UNIT/ML X5UNITS SUBQ SCH (20:22)
[2021-02-26 07:26] VITALS: BP 128/65
[2021-02-26] MEDS: Amoxicillin 500 MG CAPSULE PO SCH (07:52)
[2021-02-26] MEDS: Cholecalciferol (D-3) 1,000 UNIT (25MCG) TABLET PO SCH (07:52)
[2021-02-26] MEDS: Propranolol LA (24 HR) 60 MG CAP.SA.24H PO SCH (07:53)
[2021-02-26] MEDS: Gabapentin 300 MG CAPSULE PO SCH (07:53)
[2021-02-26] MEDS: Furosemide 40 MG TABLET PO SCH (07:53)
[2021-02-26] MEDS: Apixaban 5 MG TABLET PO SCH (07:54)
[2021-02-26] MEDS: Multivit/Ca/Min/Fe/FA 1 TAB TABLET PO SCH (07:54)
[2021-02-26] MEDS: Insulin LISPRO 300 UNITS/3 ML VIAL SUBQ SCH ×4 (07:54→12:23)
[2021-02-26] MEDS: Artificial Tears SOLN 15 ML BOTTLE BOTH EYES SCH (08:04)
[2021-02-26] MEDS: Fluticasone Propionate Nasal 50 MCG/SPRAY BOTTLE NS SCH (08:04)
[2021-02-26] MEDS: Nystatin POWDER 30 GM BOTTLE TP SCH (08:05)
[2021-02-26] MEDS: polyethylene glycoL 3350 17 GM POWD.PACK PO SCH (08:05)
[2021-02-26] MEDS: Sennosides/Docusate Sodium TABLET PO SCH (08:06)
[2021-02-26] MEDS: FEBUXOSTAT 40 MG PO SCH (08:06)
[2021-02-26] MEDS: Magnesium Oxide 400 MG TABLET PO SCH (08:13)
== END 2021-02-26 16:32 | disposition home health service (06) | DRG 177 ==
LOC: INPPIK 21:51
PROVIDERS: ADMIT Family Medicine; ATTEND Family Medicine